=== PATIENT | male | born 1985 | race Caucasian/White ===

== ENCOUNTER 2021-10-26 23:54 | Inpatient (IN) | payer OTHER ==
[~2021-10-26] VITALS: Ht 182.9 cm; Wt 100.2 kg
[~2021-10-26 23:54] MED LIST: DARVOCET-N 1001 EACH PO; NOHOMEMEDICATIONS; PENICILLIN VK250 MG PO
[2021-10-26 23:56] VITALS: BP 141/96
[2021-10-27 00:40] LABS: BE -1.9 mmol/L (-2 to +3); PCO2 VENOUS 35.4 mmHg (41.0-51.0); PO2 VENOUS 77.3 mmHg (35.0-45.0)
[2021-10-27 00:41] LABS: ABSOLUTE EOSINOPHILS 0.1 thou/uL (0.0-0.7); ABSOLUTE MONOCYTES 0.4 thou/uL (0.0-1.2); ABSOLUTE NEUTROPHILS 5.3 thou/uL (1.6-8.1); BASOPHILS 0.5 %; HEMATOCRIT 38.4 % (42.0-52.0); HEMOGLOBIN 12.9 gm/dL (14.0-18.0); LYMPHOCYTES 14.8 %; MCH 29.4 pg (26.0-34.0); MCHC 33.5 g/dL (28.0-37.0); MCV 87.7 fL (80.0-100.0); MONOCYTES 5.4 %; MPV 7.4 fl. (7.2-11.1); NUCLEATED RBCS 0 /100WBC; PLATELET COUNT* 167 thou/uL (150-400); POLYS 78.3 %; RBC 4.38 mil/uL (4.50-6.00); RDW-CV 16.9 % (10.5-14.5); WBC 6.8 thou/uL (4.0-11.0)
[2021-10-27 00:55] LABS: CALCIUM 8.5 mg/dL (8.5-10.1); CREATININE 0.9 mg/dL (0.6-1.3); POTASSIUM 3.5 mmol/L (3.5-5.1)
[2021-10-27 00:56] LABS: PROTIME 10.2 Seconds (9.20-11.50)
[2021-10-27 00:59] LABS: ALBUMIN 3.2 g/dL (3.4-5.0); MAGNESIUM 1.6 mg/dL (1.8-2.4); TOTAL BILIRUBIN 0.7 mg/dL (<0.1-1.0); TOTAL PROTEIN 7.2 g/dL (6.4-8.2)
[2021-10-27 01:04] LABS: URINE BILIRUBIN NEGATIVE (Negative); URINE BLOOD 1+ (Negative); URINE CLARITY CLEAR; URINE COLOR YELLOW; URINE GLUCOSE-RANDOM NEGATIVE (Negative); URINE KETONES NEGATIVE (Negative); URINE LEUKOCYTES-REFLEX NEGATIVE (Negative); URINE NITRITE-REFLEX NEGATIVE (Negative); URINE PROTEIN 1+ (Negative); URINE SPECIFIC GRAVITY 1.015 (1.005-1.030); URINE UROBILINOGEN 0.2 E.U./dl (0.2-1.0)
[2021-10-27 01:12] LABS: AMP/METHAMP Negative (Negative); BARBITURATES Negative (Negative); BENZODIAZEPINES Negative (Negative); COCAINE Negative (Negative); METHADONE Negative (Negative); OPIATES Negative (Negative); PCP Negative (Negative); THC Negative (Negative)
[2021-10-27 01:19] LABS: AMORPHOUS URATES Few /LPF (None Seen); FINE GRANULAR CASTS 0-3 Few /LPF (None Seen); HYALINE CASTS 0-3 Few /LPF (None Seen); MUCUS 4-6 Moderate strn/LPF (None Seen); SQUAMOUS 0-3 Few /LPF (0-3); URINE RBC 3-10 Few /HPF (0-2); URINE WBC-REFLEX 6-15 Few /HPF (0-5)
[2021-10-27 03:20] VITALS: BP 128/85
[2021-10-27 06:09] VITALS: BP 133/86
[2021-10-27 09:23] VITALS: BP 133/92
--- NOTE | 2021-10-27 10:25 | EKG ---
[place] [address] ELECTROCARDIOGRAM REPORT Name: EDELEDY J Room: [address] ADM IN .R.#: [id number] Admission: 10/27/21 Attend Phys: Mariposa Goetz, Discharge: Date of : 85 Date of Service: 10/27/21 0001 Report #: [id number] THIS REPORT FOR: //name// [facility] ED Test Date: 2021-10-27 Test Time: 00:01:45 Pat Name: EDY HOLLINGSWORTH Department: Room: [facility] Gender: M Predatory Animal Exterminator: : 1985 Requested By: Ann Moon Order Number: [id number] MD: Aman Coreas Measurements Intervals [place] Rate: 113 P: 69 SC: 136 QRS: 69 QRSD: 85 T: 82 QT: 328 QTc: 450 Interpretive Statements Sinus tachycardia Left atrial enlargement Nonspecific T abnormalities, lateral leads Baseline wander in lead(s) V2 No previous ECG available for comparison Electronically Signed On 10-27-2021 10:25:30 [employer] MACHINE by Aman Coreas [email or web address] <ELECTRONICALLY SIGNED> By: Lyla Coreas MD, [facility] 10/27/21 1025 0001 0001 Lyla Coreas MD, [facility] /EPI
[2021-10-27 12:00] VITALS: BP 129/90
[2021-10-27 16:00] VITALS: BP 121/83
[2021-10-27 20:55] VITALS: BP 127/66
[2021-10-28] VITALS: BP 131/88
[2021-10-28 04:12] VITALS: BP 125/84
[2021-10-28 08:00] VITALS: BP 126/82
--- NOTE | 2021-10-28 08:56 | NUR ---
Pt is admitted to the hospital on 10/27/21 after suffering a seizure from ETOH withdrawl. Pt appears somewhat confused and disoriented today. Reports he lives with is parents and has been attempting to quit drinking for sometime. Reports due to private pay status it has been difficult finding assistance. Pt was independent previously with [employer] and [employer]. No hx of HH/DME/SNF. Pt has no PCP and fills prescriptions at [facility]. Will provide ETOH resources before discharge. CM to continue to follow for discharge planning.
[2021-10-28 11:30] VITALS: BP 154/108
[2021-10-28 15:00] VITALS: BP 135/94
[2021-10-28 20:30] VITALS: BP 142/105
[2021-10-29 00:37] VITALS: BP 122/89
[2021-10-29 04:00] VITALS: BP 137/80
--- NOTE | 2021-10-29 05:29 | NUR ---
PT AO X4 WITH CIWA OF 8 AND 7 THIS SHIFT. HAVING SOME ANXIETY AND SWEATS. HE IS TRYING TO RELAX AND USE MUSIC TO HELP GET HIM TO SLEEP. MEDS PER EMAR, PT UP TO TOILET AD DANYELL WITH STEADY GAIT. PT MAKES NEEDS KNOWN WITH HOURLY ROUNDING.
[2021-10-29 07:20] VITALS: BP 143/96
[2021-10-29 11:44] VITALS: BP 134/92
--- NOTE | 2021-10-29 14:26 | NUR ---
Anticipate discharge tommorow - 10/30/21. Anticipate no discharge needs at this time. Pt initially refused ETOH resources - will see if he would like them on discharge. CM to continue to follow for discharge planning.
[2021-10-29 16:42] VITALS: BP 139/93
[2021-10-29 19:35] VITALS: BP 137/93
[2021-10-30] VITALS: BP 139/104
[2021-10-30 04:00] VITALS: BP 144/80
[2021-10-30 07:15] VITALS: BP 118/85
[2021-10-30] MEDS ORDERED: ATIVAN1 M1 PO (09:12)
[2021-10-30] MEDS ORDERED: PRENATAL PO (09:12)
[2021-10-30] MEDS ORDERED: VITAMIN B-1100 M1 PO (09:12)
[2021-10-30] MEDS ORDERED: BUSPIRONE HCL5 MG PO (09:12)
[2021-10-30 09:51] VITALS: BP 118/85
--- NOTE | 2021-10-30 10:29 | NUR ---
Anticipate discharge today and met with the patient to provide the following resources: *ETOH treatment resources *Safety Clinics *Medication Assistance Pt seem open to receiving ETOH resources and we discussed seeking treatment.
== END 2021-10-30 10:30 | disposition home or self-care (01) | DRG 896 ==
LOC: M.ERS 23:54 → M.TBA-ER 10-27 02:17 → M.2W 10-27 03:40
PROVIDERS: Emergency Medicine; ADMIT Internal Medicine; ATTEND Internal Medicine
DX: F10.230 Alcohol dependence with withdrawal, uncomplicated (principal); N17.0 Acute kidney failure with tubular necrosis; E87.3 Alkalosis; F17.210 Nicotine dependence, cigarettes, uncomplicated; D64.9 Anemia, unspecified; F41.9 Anxiety disorder, unspecified; Z20.822 Contact with and (suspected) exposure to COVID-19